=== PATIENT | male | born 1980 | race Caucasian/White ===

== ENCOUNTER → 2021-03-02 08:05 | Outpatient (CLI) | payer OTHER, SELFPAY ==
--- NOTE | ~2021-03-02 | MR_ITS ---
EXAMINATION: MR elbow LT wo con DATE: 03/02/2021 09:11 INDICATION: Left elbow pain. TECHNIQUE: Magnetic resonance imaging (MRI) of the left elbow was performed without intravenous contr ast. Sequences included coronal, axial, and sagittal PD-weighted FS FSE and coronal, axial, and sagit violet PD-weighted FSE. COMPARISON: None FINDINGS: Osseous/other: Normal alignment. Normal marrow signal with no marrow edema, fracture, osteochondral lesion or abnor mal marrow replacing process. Tendons: Triceps and brachialis tendons are normal. Near complete tear of the biceps brachii tendon which invo lves at least 80% of the cross-sectional area of the tendon. A very small portion of the tendon appea rs to remain intact. The torn portion of the tendon is retracted 8 cm from the radial tuberosity foot plate where there is small amount of residual attached and frayed distal tendon. Accordioning of the retracted tear. Common flexor tendon wad is normal. Mild tendinopathy without discrete tear at the or igin of the common extensor tendon wad. Ligaments: The medial and lateral collateral ligament complexes are normal. Cubital tunnel: Cubital tunnel is unremarkable with normal signal and caliber of the ulnar nerve. Fluid: Physiologic amount of fluid the elbow joint. Small amount of fluid extending along the biceps tendon tear defect. IMPRESSION: 1. High-grade partial tear appears to involve at least 80% of the cross-sectional thickness of the di stal biceps brachii tendon. 2. Mild tendinopathy without discrete tear at the lateral epicondylar origin of the common extensor t endon wad. Reviewed, dictated and finalized at location A. IMPRESSION: 1. High-grade partial tear appears to involve at least 80% of the cross-section al thickness of the distal biceps brachii tendon. 2. Mild tendinopathy without discrete tear at the lateral epicondylar origin of the common extensor tendon wad.
== END ==
PROVIDERS: Visit Provider Orthopaedic Surgery
DX: M25.522 Pain in left elbow (principal); S46.212A Strain of muscle, fascia and tendon of other parts of biceps, left arm, initial encounter; M65.822 Other synovitis and tenosynovitis, left upper arm
CPT/HCPCS: 73221